=== PATIENT | female | born 1990 ===

== ENCOUNTER 2016-05-20 18:12 | Emergency (ER) | payer OTHER ==
--- NOTE | 2016-05-20 18:27 | UCPHY ---
H & P Time Seen by Provider: 05/20/16 18:19 Patient Type: New HPI/ROS: Patient injured her foot bumping on a pedal of a mop bucket at work. 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 She explains that she twisted her foot in the process and abrupt onset of pain at 8:30 p.m. last night. She usually describes the pain is mild to moderate but this morning noted that the pain increased to moderate baseline and severe with any attempts to bear weight. She describes the nature the pain as achy. She tried 400 mg of ibuprofen with minimal improvement and came in for evaluation. ROS: No numbness or tingling. No other injuries. She did not fall from the incident. No Achilles pain or posterior calf pain. No significant discoloration to the foot. 5 point ROS is otherwise negative. Past Medical/Surgical History: Otherwise healthy. No prior foot injuries. Smoking Status: Never smoked Physical Exam: Pleasant female no acute distress Physical Exam Vital signs are normal. General: No acute distress HEENT: Atraumatic. Eyes: Pupils equal and react to light. Extraocular motions are intact. Lungs: No respiratory distress. Cardiac: Brisk capillary refill is intact throughout. Pulses are 2+ and symmetric in the affected extremity. Skin: No rash or pallor. Extremities: Atraumatic and normal except for right foot Right foot: Patient has moderate tenderness to the 5th metatarsal and to the dorsum of the midfoot. No significant ecchymosis or swelling. She has no associated ankle swelling or tenderness and no Achilles tenderness. Neuro: Alert and oriented x3 with no sensorimotor deficits. Initial differential diagnosis: Foot sprain versus fracture. Constitutional: Initial Vital Signs Temperature (C) 37.2 C 05/20/16 18:14 Heart Rate 71 05/20/16 18:14 Respiratory Rate 18 05/20/16 18:14 Blood Pressure 112/62 05/20/16 18:14 O2 Sat (%) 97 05/20/16 18:14 O2 Delivery Mode Room Air Allergies/Adverse Reactions: No Known Allergies Allergy (Verified 03/26/12 10:44) Home Medications: Medication Instructions Recorded Miscellaneous Medical Supply [NO 1 ea MISC AD 03/26/12 HOME MEDS] Ibuprofen [Motrin (*)] 600 mg PO Q6 PRN #30 tab 05/20/16 MDM/Departure - MDM Diagnostics: The foot x-ray read as normal by Dr. Carrillo and reviewed by myself ED Course/Re-evaluation: Postop shoe was applied. I counseled patient regarding foot sprain. She is discharged with crutches. - Depart Disposition: Home, Routine, Self-Care Clinical Impression: Foot sprain Qualifiers: Encounter type: initial encounter Laterality: right Qualified Code(s): S93.601A - Unspecified sprain of right foot, initial encounter Condition: Good Instructions: Foot Sprain (ED), Crutch Instructions (ED) Additional Instructions: Diagnosis: Foot sprain Plan: Ice 20 minutes at a time 3 times a day until symptoms improve Ibuprofen-600 mg per 6 hours as needed for pain Tylenol in addition Postop shoe when your up and about until symptoms resolve Use crutches until it is no longer painful to bear weight. Call the work comp clinic to arrange follow-up appointment on Wednesday. No work until you have been recheck by a work comp Referrals: [facility],. [Primary Care Provider] - As per Instructions Rica Marie MD [Medical Doctor] - As per Instructions - PQRS PQRS Measurement: NA
[2016-05-20 18:55] VITALS: RESP 18
[2016-05-20] MEDS ORDERED: IBUPROFEN 200 MG TAB PO ONE (18:55)
[2016-05-20 19:46] VITALS: BP 115/68; PULSE 75; TEMP 98.2; O2SAT 96
== END 2016-05-20 19:20 | disposition home or self-care (01) ==
LOC: CED 18:12
DX: S93.601A Unspecified sprain of right foot, initial encounter (principal); Y92.239 Unspecified place in hospital as the place of occurrence of the external cause; Y93.E5 Activity, floor mopping and cleaning
CPT/HCPCS: 73630-PO; 99203-PO; G0463-PO

== ENCOUNTER → 2017-06-29 | Outpatient (CLI) | payer OTHER | LOC: FLAB 17:52 | PROVIDERS: ATTEND Physician Assistant | DX: N83.201 Unspecified ovarian cyst, right side (principal) ==

== ENCOUNTER 2018-04-16 14:36 | Emergency (ER) | payer MEDICAID, OTHER | END 2018-04-16 17:44 | disposition home or self-care (01) ==